=== PATIENT | male | born 1935 | race Caucasian/White ===

== ENCOUNTER 2019-02-01 17:56 | Observation (INO) | payer MEDICARE ==
[~2019-02-01] VITALS: Ht 185.4 cm; Wt 76.2 kg
[~2019-02-01 17:56] MED LIST: AZIT250 PO; CEPH250A; CEPH500; METF500 PO; METF850; ROSU10TA
[2019-02-01 18:21] LABS: BASOPHILS ABSOLUTE AUTO 0.03 K/mm3 (0.00-0.23); BASOPHILS PERCENT AUTO 0 % (0-2); EOSINOPHILS ABSOLUTE AUTO 0.07 K/mm3 (0.00-0.68); EOSINOPHILS PERCENT AUTO 1 % (0-6); Hematocrit 40.1 % (37.0-53.0); Hemoglobin 13.1 g/dL (13.5-17.5); IMMATURE GRAN ABSOLUTE AUTO 0.03 K/mm3 (0.00-0.10); IMMATURE GRAN PERCENT AUTO 0 % (0-1); LYMPHOCYTES ABSOLUTE AUTO 1.49 K/mm3 (0.84-5.20); LYMPHOCYTES PERCENT AUTO 20 % (21-46); MONOCYTES ABSOLUTE AUTO 0.57 K/mm3 (0.16-1.47); MONOCYTES PERCENT AUTO 8 % (4-13); Mean Corpuscular HGB 30.2 pg (26.0-34.0); Mean Corpuscular HGB Conc 32.7 g/dL (31.5-36.5); Mean Corpuscular Volume 92 fL (80-100); Mean Platelet Volume 11.4 fL (9.1-12.4); NEUTROPHILS ABSOLUTE AUTO 5.28 K/mm3 (1.96-9.15); NEUTROPHILS PERCENT AUTO 71 % (41-73); Platelet Count 175 K/mm3 (150-400); RDW Coefficient Variation 13.2 % (11.7-14.2); RDW Standard Deviation 44.8 fL (35.1-46.3); Red Blood Cell Count 4.34 M/mm3 (4.30-5.90); White Blood Cell Count 7.47 K/mm3 (4.00-11.30)
[2019-02-01] MEDS ORDERED: DICLOFENAC SOD100 GM TOP (18:29)
[2019-02-01] MEDS ORDERED: METF500 PO (18:29)
[2019-02-01] MEDS ORDERED: Capsaicin60 GM TOP (18:30)
[2019-02-01] MEDS ORDERED: TRAM50 PO (18:30)
[2019-02-01] MEDS ORDERED: ACET500 PO (18:30)
[2019-02-01] MEDS ORDERED: DOCU100 PO (18:31)
[2019-02-01] MEDS ORDERED: Fish Oil 1,0001 EAC3 PO (18:31)
[2019-02-01 18:43] LABS: Alanine Aminotransfer (ALT/SGP 25 U/L (12-78); Albumin, Blood 3.7 g/dL (3.4-5.0); Albumin/Globulin Ratio 1.2 (0.8-1.8); Alk Phos 54 U/L (50-136); Anion Gap 4 mmol/L (6-16); Aspartate Aminotrans (AST/SGOT 19 U/L (12-37); Bilirubin, Total 0.2 mg/dL (0.1-1.0); Blood Urea Nitrogen 18 mg/dL (8-24); CO2, Blood 28 mmol/L (21-32); Calcium, Blood 8.8 mg/dL (8.5-10.1); Chloride, Blood 109 mmol/L (98-108); Creatinine, Blood 1.06 mg/dL (0.60-1.20); Globulin, Blood 3.2 g/dL (2.2-4.0); Glomerular Filtration Rate >60 (60-); Glucose, Blood 139 mg/dL (70-99); Potassium, Blood 4.1 mmol/L (3.5-5.5); Sodium, Blood 141 mmol/L (136-145); Total Protein, Blood 6.9 g/dL (6.4-8.2); Troponin I <0.015 ng/mL (0.000-0.040)
[2019-02-01 21:11] LABS: CHOL/HDL RATIO 3.9; Cholesterol 176 mg/dL (50-200); HDL Cholesterol 45 mg/dL (>39); LDL/HDL RATIO 1.9; Low Density Lipoprotein Chol 87 mg/dL (0-110); Triglycerides 222 mg/dL (30-160); Very Low Density Lipoprot Chol 44 mg/dL (6-32)
[2019-02-01] MEDS ORDERED: HYLANDS LEG CRAMP PO (21:39)
[2019-02-02 04:47] LABS: Hemoglobin 12.3 g/dL (13.5-17.5); Mean Corpuscular HGB 29.5 pg (26.0-34.0); Mean Corpuscular HGB Conc 32.4 g/dL (31.5-36.5); Mean Corpuscular Volume 91 fL (80-100); Mean Platelet Volume 11.6 fL (9.1-12.4); Platelet Count 156 K/mm3 (150-400); RDW Coefficient Variation 13.3 % (11.7-14.2); RDW Standard Deviation 44.4 fL (35.1-46.3); Red Blood Cell Count 4.17 M/mm3 (4.30-5.90); White Blood Cell Count 6.35 K/mm3 (4.00-11.30)
[2019-02-02 05:12] LABS: Alanine Aminotransfer (ALT/SGP 20 U/L (12-78); Albumin, Blood 3.3 g/dL (3.4-5.0); Albumin/Globulin Ratio 1.2 (0.8-1.8); Alk Phos 47 U/L (50-136); Anion Gap 5 mmol/L (6-16); Aspartate Aminotrans (AST/SGOT 19 U/L (12-37); Bilirubin, Total 0.3 mg/dL (0.1-1.0); Blood Urea Nitrogen 17 mg/dL (8-24); Bun/Creatinine Ratio 17.7 (12.0-20.0); CO2, Blood 27 mmol/L (21-32); Calcium, Blood 8.4 mg/dL (8.5-10.1); Chloride, Blood 112 mmol/L (98-108); Creatinine, Blood 0.96 mg/dL (0.60-1.20); Globulin, Blood 2.7 g/dL (2.2-4.0); Glomerular Filtration Rate >60 (60-); Glucose, Blood 95 mg/dL (70-99); Sodium, Blood 144 mmol/L (136-145)
--- NOTE | 2019-02-02 05:45 | NUR ---
SHIFT SUMMARY PT ADMITTED FOR LEFT SIDED NUMBNESS, HAS RESOLVED UPON ARRIVAL TO UNIT. PT ALERT AND ORIENTED, UP INDEPENDENTLY IN ROOM. NO SKIN ISSUES NOTED. TELEMETRY INTACT AND SHOWS A PACED RHYTHM AT 67. PT OFFERS NO C/O'S, WILL CONTINUE TO MONITOR.
--- NOTE | 2019-02-02 09:31 | NUR ---
ECHOCARDIOGRAM COMPLETE
[2019-02-02] MEDS ORDERED: ASPI81CH PO (14:22)
--- NOTE | 2019-02-02 14:59 | NUR ---
PT DISCHARGED AT 1435. ALL PAPERS REVIEWED AND EDUCATIONAL MATERIAL SENT. AOX4 VERY PLEASANT WITH CARE TODAY. INDEPENDENT IN ROOM NO DISTRESS NOTED. PT REQUESTED [facility] TO BE CALLED TO GET HIM TO [place] TO GET HIS CAR.
== END 2019-02-02 14:42 | disposition home or self-care (01) ==
LOC: ER 17:56 → MEDS 17:57
PROVIDERS: Emergency Medicine; ADMIT Internal Medicine
DX: R20.0 Anesthesia of skin (principal); R29.898 Other symptoms and signs involving the musculoskeletal system; R07.89 Other chest pain; K59.00 Constipation, unspecified; I65.21 Occlusion and stenosis of right carotid artery; E11.9 Type 2 diabetes mellitus without complications; E78.00 Pure hypercholesterolemia, unspecified; Z85.038 Personal history of other malignant neoplasm of large intestine; Z79.899 Other long term (current) drug therapy; Z79.84 Long term (current) use of oral hypoglycemic drugs; Z88.8 Allergy status to other drugs, medicaments and biological substances
CPT/HCPCS: 36415; 70450; 80053; 80061; 84484; 85025; 85027; 93005; 93010; 93306; 93880; 96372; 99285-25; G0378; J1650; J7030

== ENCOUNTER 2019-03-25 04:22 | Emergency (ER) | payer MEDICARE ==
[~2019-03-25] VITALS: Ht 182.9 cm; Wt 75.8 kg
[~2019-03-25 04:22] MED LIST changes: +ACET500 PO; +ASPI81CH PO; +Capsaicin60 GM TOP; +DICLOFENAC SOD100 GM TOP; +DOCU100 PO; +Fish Oil 1,0001 EAC3 PO; +HYLANDS LEG CRAMP PO; +TRAM50 PO
[2019-03-25 04:58] LABS: BASOPHILS ABSOLUTE AUTO 0.03 K/mm3 (0.00-0.23); BASOPHILS PERCENT AUTO 0 % (0-2); EOSINOPHILS ABSOLUTE AUTO 0.11 K/mm3 (0.00-0.68); EOSINOPHILS PERCENT AUTO 1 % (0-6); Hematocrit 42.7 % (37.0-53.0); Hemoglobin 13.8 g/dL (13.5-17.5); IMMATURE GRAN ABSOLUTE AUTO 0.07 K/mm3 (0.00-0.10); IMMATURE GRAN PERCENT AUTO 0 % (0-1); LYMPHOCYTES ABSOLUTE AUTO 0.89 K/mm3 (0.84-5.20); LYMPHOCYTES PERCENT AUTO 5 % (21-46); MONOCYTES PERCENT AUTO 8 % (4-13); Mean Corpuscular HGB 30.6 pg (26.0-34.0); Mean Corpuscular HGB Conc 32.3 g/dL (31.5-36.5); Mean Corpuscular Volume 95 fL (80-100); Mean Platelet Volume 11.2 fL (9.1-12.4); NEUTROPHILS ABSOLUTE AUTO 14.85 K/mm3 (1.96-9.15); NEUTROPHILS PERCENT AUTO 86 % (41-73); Platelet Count 191 K/mm3 (150-400); RDW Coefficient Variation 13.3 % (11.7-14.2); RDW Standard Deviation 46.8 fL (35.1-46.3); Red Blood Cell Count 4.51 M/mm3 (4.30-5.90); White Blood Cell Count 17.35 K/mm3 (4.00-11.30)
[2019-03-25 05:38] LABS: Albumin, Blood 3.9 g/dL (3.4-5.0); Albumin/Globulin Ratio 1.1 (0.8-1.8); Bilirubin, Total 0.3 mg/dL (0.1-1.0); Calcium, Blood 9.2 mg/dL (8.5-10.1); Creatinine, Blood 1.24 mg/dL (0.60-1.20); Globulin, Blood 3.5 g/dL (2.2-4.0); Magnesium, Blood 2.2 mg/dL (1.6-2.4); Potassium, Blood 4.3 mmol/L (3.5-5.5); Total Protein, Blood 7.4 g/dL (6.4-8.2)
[2019-03-25 07:58] LABS: Source, Urine Voided
[2019-03-25 08:03] LABS: Bilirubin, Urine Neg (Neg); Blood, Urine Neg (Neg); Glucose Qualitative, Urine Neg (Neg); Ketones, Urine Neg (Neg); Leukocyte Esterase, Urine Neg (Neg); Nitrite, Urine Neg (Neg); Protein, Urine 1+ (Neg); Urobilinogen, Urine NORM (Normal)
[2019-03-25 08:20] LABS: Appearance, Urine Clear (Clear); Color, Urine Yellow (P-Yellow)
== END 2019-03-25 09:19 | disposition home or self-care (01) ==
LOC: ER 04:22
PROVIDERS: Emergency Medicine
DX: R19.7 Diarrhea, unspecified (principal); R10.9 Unspecified abdominal pain; Z88.8 Allergy status to other drugs, medicaments and biological substances; Z79.899 Other long term (current) drug therapy; Z79.84 Long term (current) use of oral hypoglycemic drugs; Z79.82 Long term (current) use of aspirin; E11.9 Type 2 diabetes mellitus without complications; Z86.73 Personal history of transient ischemic attack (TIA), and cerebral infarction without residual deficits; Z87.891 Personal history of nicotine dependence
CPT/HCPCS: 36415; 71045; 74177; 80053; 83605; 83735; 85025; 99284-25; A9270; J7030; Q9967

== ENCOUNTER 2019-09-18 08:11 | Day surgery (SDC) | payer OTHER ==
[~2019-09-18] VITALS: Ht 182.9 cm; Wt 74.1 kg
[~2019-09-18 08:11] MED LIST changes: +Augmentin 875-1 EACH PO; +BISA5EC PO; +PROBIOTIC1 EAC1 PO
== END 2019-09-18 11:12 | disposition home or self-care (01) ==
LOC: ORSCSDS 08:11
PROVIDERS: Internal Medicine Gastroenterology
PROC: 0DJD8ZZ Inspection of Lower Intestinal Tract, Via Natural or Artificial Opening Endoscopic (ICD-10-PCS; principal; 2019-09-18 09:30)
PROC: 0DB68ZX Excision of Stomach, Via Natural or Artificial Opening Endoscopic, Diagnostic (ICD-10-PCS; principal; 2019-09-18 09:30)
PROC: 0DB58ZX Excision of Esophagus, Via Natural or Artificial Opening Endoscopic, Diagnostic (ICD-10-PCS; principal; 2019-09-18 09:30)
PROC: 0D758ZZ Dilation of Esophagus, Via Natural or Artificial Opening Endoscopic (ICD-10-PCS; principal; 2019-09-18 09:30)
DX: R13.12 Dysphagia, oropharyngeal phase (principal); K21.9 Gastro-esophageal reflux disease without esophagitis; K29.50 Unspecified chronic gastritis without bleeding; K31.9 Disease of stomach and duodenum, unspecified; K57.30 Diverticulosis of large intestine without perforation or abscess without bleeding; K59.00 Constipation, unspecified; Z80.0 Family history of malignant neoplasm of digestive organs; Z86.010 Personal history of colon polyps; Z87.891 Personal history of nicotine dependence; E11.9 Type 2 diabetes mellitus without complications; Z95.0 Presence of cardiac pacemaker; Z79.82 Long term (current) use of aspirin; Z79.84 Long term (current) use of oral hypoglycemic drugs; Z79.899 Other long term (current) drug therapy
CPT/HCPCS: 74270; 82947; 88305; 88341; 88342; J2704; J7120

== ENCOUNTER 2019-10-12 09:31 | Emergency (ER) | payer OTHER ==
[~2019-10-12] VITALS: Ht 182.9 cm; Wt 73.0 kg
[2019-10-12] MEDS ORDERED: MELA3 PO (09:45)
[2019-10-12] MEDS ORDERED: AMOX875 PO (09:46)
[2019-10-12] MEDS ORDERED: VITAMINS (09:48)
[2019-10-12] MEDS ORDERED: Norco 5-325 Ta1 EACH PO (10:52)
== END 2019-10-12 11:00 | disposition home or self-care (01) ==
LOC: ER 09:31
DX: M79.621 Pain in right upper arm (principal); E11.9 Type 2 diabetes mellitus without complications; Z88.5 Allergy status to narcotic agent; Z88.8 Allergy status to other drugs, medicaments and biological substances; Z79.899 Other long term (current) drug therapy; Z79.84 Long term (current) use of oral hypoglycemic drugs; Z98.2 Presence of cerebrospinal fluid drainage device; Z87.891 Personal history of nicotine dependence
CPT/HCPCS: 36415; 84484; 93005; 93010; 99283-25

== ENCOUNTER 2020-06-17 20:44 | Emergency (ER) | payer OTHER, MEDICARE ==
[~2020-06-17] VITALS: Ht 182.9 cm; Wt 73.0 kg
[~2020-06-17 20:44] MED LIST changes: +AMOX875 PO; +HYDR1TAB94 PO; +MELA3 PO; +METPRE4DP PO; +Norco 5-325 Ta1 EACH PO; +VITAMINS
== END 2020-06-17 23:38 | disposition home or self-care (01) ==
LOC: ER 20:44
DX: S61.431A Puncture wound without foreign body of right hand, initial encounter (principal); E11.9 Type 2 diabetes mellitus without complications; E78.00 Pure hypercholesterolemia, unspecified; Z95.0 Presence of cardiac pacemaker; Z87.891 Personal history of nicotine dependence; Z88.5 Allergy status to narcotic agent; Z88.8 Allergy status to other drugs, medicaments and biological substances; Z79.84 Long term (current) use of oral hypoglycemic drugs; Z79.82 Long term (current) use of aspirin; Z86.73 Personal history of transient ischemic attack (TIA), and cerebral infarction without residual deficits; W45.8XXA Other foreign body or object entering through skin, initial encounter
CPT/HCPCS: 99283-25

== ENCOUNTER → 2020-09-29 | Outpatient (CLI) | payer OTHER, MEDICARE | LOC: LAB SHORT 08:05 → LAB 08:05 | DX: L57.0 Actinic keratosis (principal) | CPT/HCPCS: 88305 ==

== ENCOUNTER 2022-04-17 12:23 | Emergency (ER) | payer OTHER ==
[~2022-04-17] VITALS: Ht 182.9 cm; Wt 73.0 kg
[2022-04-17] MEDS ORDERED: ONDA4ODT MM (12:40)
== END 2022-04-17 14:20 | disposition home or self-care (01) ==
LOC: ER 12:23
DX: U07.1 COVID-19 (principal); E11.9 Type 2 diabetes mellitus without complications; Z86.73 Personal history of transient ischemic attack (TIA), and cerebral infarction without residual deficits; Z87.891 Personal history of nicotine dependence; Z79.899 Other long term (current) drug therapy; Z79.82 Long term (current) use of aspirin; Z88.8 Allergy status to other drugs, medicaments and biological substances
CPT/HCPCS: 36415; J2405

== ENCOUNTER 2022-05-03 08:21 | Inpatient (IN) | payer OTHER ==
[~2022-05-03] VITALS: Ht 182.9 cm; Wt 73.6 kg
[~2022-05-03 08:21] MED LIST changes: +ONDA4ODT MM
[2022-05-03 09:15] LABS: Hematocrit 33.1 % (37.0-53.0); Hemoglobin 10.9 g/dL (13.5-17.5); Mean Corpuscular HGB 29.5 pg (26.0-34.0); Mean Corpuscular HGB Conc 32.9 g/dL (31.5-36.5); Mean Corpuscular Volume 90 fL (80-100); Mean Platelet Volume 11.5 fL (9.1-12.4); Platelet Count 259 K/mm3 (150-400); Red Blood Cell Count 3.69 M/mm3 (4.30-5.90)
[2022-05-03 09:21] LABS: Albumin, Blood 2.7 g/dL (3.4-5.0); Albumin/Globulin Ratio 0.8 (0.8-1.8); Bilirubin, Total 0.3 mg/dL (0.1-1.0); Bun/Creatinine Ratio 27.8 (12.0-20.0); Calcium, Blood 7.7 mg/dL (8.5-10.1); Creatinine, Blood 1.15 mg/dL (0.60-1.20); Globulin, Blood 3.2 g/dL (2.2-4.0); Potassium, Blood 4.4 mmol/L (3.5-5.5); Total Protein, Blood 5.9 g/dL (6.4-8.2)
[2022-05-03 09:40] LABS: BAND PERCENT MAN 7 % (0-8); BASOPHILS PERCENT MAN 0 % (0-2); EOSINOPHILS ABSOLUTE MAN 0.29 K/mm3 (0.00-0.68); EOSINOPHILS PERCENT MAN 1 % (0-6); LYMPHOCYTES ABSOLUTE MAN 0.29 K/mm3 (0.84-5.20); LYMPHOCYTES PERCENT MAN 1 % (21-46); MONOCYTES ABSOLUTE MAN 0.29 K/mm3 (0.16-1.47); MONOCYTES PERCENT MAN 1 % (4-13); NEUTROPHILS ABSOLUTE MAN 28.61 K/mm3 (1.96-9.15); SEG NEUTROPHILS PERCENT MAN 90 % (41-73); TOTAL CELLS COUNTED 100
[2022-05-03 10:59] LABS: Source, Urine Clean Catch
[2022-05-03 11:13] LABS: Appearance, Urine Hazy (Clear); Blood, Urine 5+ (Neg); Color, Urine Yellow (P-Yellow); Glucose Qualitative, Urine Neg (Neg); Ketones, Urine Neg (Neg); Leukocyte Esterase, Urine 2+ (Neg); Nitrite, Urine Neg (Neg); Protein, Urine 2+ (Neg); Urobilinogen, Urine 1+ (Normal)
[2022-05-03 11:16] LABS: Bilirubin, Urine 1+ (Neg)
[2022-05-03 11:32] LABS: Bacteria Many /hpf; Mucus Light (0-Heavy); Squamous Epithelial Cells Rare /hpf (Few); Transitional Epithelial Cells Rare /hpf (0-Rare)
--- NOTE | 2022-05-03 14:20 | NUR ---
Received report from WOOL SHEARING SUPERVISOR. Patient transferred to PCU 13 and was self amblatory to bed. He is alert and oriented and is able to communicate his needs. He is on RA and sats >90%. He has urinal at bedside and has call light within reach. He has 20ga IV in LAC and iss infusing NS at 100 ml/hr and Rocephin. His has gone home and will be back later. His took cloths home and wanted to wash them.
--- NOTE | 2022-05-03 16:48 | NUR ---
Patient used urinal and call light appropriately, calls when needing help. He hasd NS at 100 ml/hr. CBG AC/HS. systolic >100 and MAP >65. No other significant changes with patient.
--- NOTE | 2022-05-03 18:35 | NUR ---
Patient doing well. He is independent in bed, but know to call because lines and tubes. 20 ga IV in LAC infusing NS at 100 ml/hr. He has SCD's in place tobilateral LE's. He tolerated 100% of ADA dinner and 1/2 cup coffee. He remains 100% paced 80's He had 300 mls yellow urine per urinal.He remains alert and oriented and able to communicate his needs well.
[2022-05-04 04:35] LABS: BASOPHILS ABSOLUTE AUTO 0.02 K/mm3 (0.00-0.23); BASOPHILS PERCENT AUTO 0 % (0-2); EOSINOPHILS ABSOLUTE AUTO 0.15 K/mm3 (0.00-0.68); EOSINOPHILS PERCENT AUTO 1 % (0-6); Hematocrit 32.7 % (37.0-53.0); Hemoglobin 10.4 g/dL (13.5-17.5); IMMATURE GRAN ABSOLUTE AUTO 0.03 K/mm3 (0.00-0.10); IMMATURE GRAN PERCENT AUTO 0 % (0-1); LYMPHOCYTES ABSOLUTE AUTO 1.32 K/mm3 (0.84-5.20); LYMPHOCYTES PERCENT AUTO 12 % (21-46); MONOCYTES ABSOLUTE AUTO 1.05 K/mm3 (0.16-1.47); MONOCYTES PERCENT AUTO 9 % (4-13); Mean Corpuscular HGB 28.9 pg (26.0-34.0); Mean Corpuscular HGB Conc 31.8 g/dL (31.5-36.5); Mean Corpuscular Volume 91 fL (80-100); Mean Platelet Volume 11.1 fL (9.1-12.4); NEUTROPHILS ABSOLUTE AUTO 8.63 K/mm3 (1.96-9.15); NEUTROPHILS PERCENT AUTO 77 % (41-73); Platelet Count 237 K/mm3 (150-400); RDW Coefficient Variation 13.3 % (11.7-14.2); RDW Standard Deviation 43.9 fL (35.1-46.3)
[2022-05-04 05:02] LABS: Albumin, Blood 2.6 g/dL (3.4-5.0); Albumin/Globulin Ratio 0.9 (0.8-1.8); Bilirubin, Total 0.2 mg/dL (0.1-1.0); Bun/Creatinine Ratio 25.9 (12.0-20.0); Calcium, Blood 7.8 mg/dL (8.5-10.1); Creatinine, Blood 0.97 mg/dL (0.60-1.20); Magnesium, Blood 2.2 mg/dL (1.6-2.4); Potassium, Blood 4.4 mmol/L (3.5-5.5); Total Protein, Blood 5.6 g/dL (6.4-8.2)
--- NOTE | 2022-05-04 08:00 | NUR ---
Received report from NOC RN. Patient sitting up in bed and awake and very energetic.He is on RA and sats >95%. He is alert and oriented and is able to communicate his needs well. He has 20ga IV in LAC and is infusing NS at 100ml/hr. He has urinal at bedside and uses appropriately. He is sitting up in bed eating breakfast independently. MAEW and is independent in bed with positioning, and is a SBA with ambulation.
--- NOTE | 2022-05-04 10:08 | NUR ---
Patient tolerated breakfast and meds. Dr and interns by to assess patient, stopped fluids. patient remains on RA and sats >95%. Independent in bed and positioning. No other new orders.
--- NOTE | 2022-05-04 13:13 | NUR ---
Patient has no significant changes. awake sitting up in bed. by and had to leave to run errands. He tolerated 100% of lunch. He continues to be independent in bed with positioning and calls appropriately. Urinal at bedside.
--- NOTE | 2022-05-04 17:05 | NUR ---
Patient indepenent in room, and he calls appropriately when needing something. He is on RA and sats >95%. He has 20ga IV to CURLY and is flushed and SL'd. He has urinal at bedside and use appropriately. SUSHMA. Plan to go home 05/05. Denies any pain or SOB.
--- NOTE | 2022-05-04 17:19 | NUR ---
Patient has been sleeping. She has had very poor appetite today and she states she feels weaker. I had another conversation about nutrition and she still does not want to eat. She has a failure to thrive attitude and she does not to really asist with getting up unless needing to urinate and t hemn she stands on her own with SBA. She can CORLEY in bed and reposition self when motivated. VSS. PowerGlide to MARGRET infusing NS at 100 ml/hr. She is getting setup for dinner and told her she needs to eat.
[2022-05-05 04:02] LABS: BASOPHILS ABSOLUTE AUTO 0.02 K/mm3 (0.00-0.23); BASOPHILS PERCENT AUTO 0 % (0-2); EOSINOPHILS ABSOLUTE AUTO 0.17 K/mm3 (0.00-0.68); EOSINOPHILS PERCENT AUTO 2 % (0-6); Hematocrit 33.5 % (37.0-53.0); IMMATURE GRAN ABSOLUTE AUTO 0.03 K/mm3 (0.00-0.10); IMMATURE GRAN PERCENT AUTO 0 % (0-1); LYMPHOCYTES ABSOLUTE AUTO 1.43 K/mm3 (0.84-5.20); LYMPHOCYTES PERCENT AUTO 15 % (21-46); MONOCYTES ABSOLUTE AUTO 1.04 K/mm3 (0.16-1.47); MONOCYTES PERCENT AUTO 11 % (4-13); Mean Corpuscular HGB 29.5 pg (26.0-34.0); Mean Corpuscular HGB Conc 32.8 g/dL (31.5-36.5); Mean Corpuscular Volume 90 fL (80-100); Mean Platelet Volume 11.1 fL (9.1-12.4); NEUTROPHILS ABSOLUTE AUTO 6.68 K/mm3 (1.96-9.15); NEUTROPHILS PERCENT AUTO 71 % (41-73); Platelet Count 233 K/mm3 (150-400); RDW Coefficient Variation 13.2 % (11.7-14.2); RDW Standard Deviation 43.5 fL (35.1-46.3); Red Blood Cell Count 3.73 M/mm3 (4.30-5.90); White Blood Cell Count 9.37 K/mm3 (4.00-11.30)
[2022-05-05 04:25] LABS: Bun/Creatinine Ratio 19.7 (12.0-20.0); Calcium, Blood 8.4 mg/dL (8.5-10.1); Creatinine, Blood 0.87 mg/dL (0.60-1.20)
--- NOTE | 2022-05-05 05:27 | NUR ---
SHIFT SUMMARY PT ALERT AND ORIENTED X4. HR SR 60-70'S. BP STABLE. ON RA SATS OVER 94%. AFEBRILE. NO C/O OF PAIN OR DISCOMFORT. INDEPENDENT FOR ADL'S. RESTING COMFORTABLY IN BED. WILL CONTINUE TO MONITOR UNTIL REPORT GIVEN TO DAYSHIFT RN
--- NOTE | 2022-05-05 10:46 | NUR ---
DISCHARGE UPDATE DISCHARGE PACKET GONE OVER WITH PT AND PT AT 1012. PT DISCHARGED AT 1024 VIA WHEELCHAIR AND ON RA. PT ABLE TO TRANSFER SELF TO AND FROM WHEELCHAIR BY HIMSELF USING HIS CANE. DISCHARGE PACKET AND PERSONAL BELONGINGS WITH PT DURING DISCHARGE.
== END 2022-05-05 10:25 | disposition home or self-care (01) | DRG 871 ==
LOC: ER 08:21 → PCU 13:01
PROVIDERS: Family Medicine; Nurse Practitioner Acute Care; Student in an Organized Health Care Education/Training Program; ADMIT Internal Medicine
DX: A41.9 Sepsis, unspecified organism (principal); G92.8 Other toxic encephalopathy; N39.0 Urinary tract infection, site not specified; A08.39 Other viral enteritis; E11.9 Type 2 diabetes mellitus without complications; U09.9 Post COVID-19 condition, unspecified; I44.1 Atrioventricular block, second degree; Z86.73 Personal history of transient ischemic attack (TIA), and cerebral infarction without residual deficits; Z95.0 Presence of cardiac pacemaker; Z85.038 Personal history of other malignant neoplasm of large intestine; Z88.8 Allergy status to other drugs, medicaments and biological substances; Z88.5 Allergy status to narcotic agent; Z79.899 Other long term (current) drug therapy; Z79.891 Long term (current) use of opiate analgesic; Z79.84 Long term (current) use of oral hypoglycemic drugs; Z98.890 Other specified postprocedural states; Z87.891 Personal history of nicotine dependence; Z86.79 Personal history of other diseases of the circulatory system; Z79.82 Long term (current) use of aspirin; Z80.0 Family history of malignant neoplasm of digestive organs; R05.8 Other specified cough
CPT/HCPCS: 36415; 70450; 71045; 74177; 80048; 80053; 81001; 82947; 83605; 83735; 84145; 84484; 85025; 87040; 93005; 93010; 96360-59; 96361; 99285-25; A9270; J0696; J1650; J7030; Q9967

== ENCOUNTER 2023-02-06 13:16 | Emergency (ER) | payer OTHER ==
[~2023-02-06] VITALS: Ht 182.9 cm; Wt 71.2 kg
[2023-02-06 13:54] LABS: BASOPHILS ABSOLUTE AUTO 0.03 K/mm3 (0.00-0.23); BASOPHILS PERCENT AUTO 0 % (0-2); EOSINOPHILS ABSOLUTE AUTO 0.11 K/mm3 (0.00-0.68); EOSINOPHILS PERCENT AUTO 1 % (0-6); Hematocrit 39.5 % (37.0-53.0); IMMATURE GRAN ABSOLUTE AUTO 0.02 K/mm3 (0.00-0.10); IMMATURE GRAN PERCENT AUTO 0 % (0-1); LYMPHOCYTES ABSOLUTE AUTO 1.59 K/mm3 (0.84-5.20); LYMPHOCYTES PERCENT AUTO 20 % (21-46); MONOCYTES ABSOLUTE AUTO 0.69 K/mm3 (0.16-1.47); MONOCYTES PERCENT AUTO 9 % (4-13); Mean Corpuscular HGB 30.4 pg (26.0-34.0); Mean Corpuscular HGB Conc 32.9 g/dL (31.5-36.5); Mean Corpuscular Volume 93 fL (80-100); Mean Platelet Volume 11.6 fL (9.1-12.4); NEUTROPHILS ABSOLUTE AUTO 5.39 K/mm3 (1.96-9.15); NEUTROPHILS PERCENT AUTO 69 % (41-73); Platelet Count 176 K/mm3 (150-400); RDW Coefficient Variation 13.2 % (11.7-14.2); RDW Standard Deviation 44.6 fL (35.1-46.3); Red Blood Cell Count 4.27 M/mm3 (4.30-5.90); White Blood Cell Count 7.83 K/mm3 (4.00-11.30)
[2023-02-06] MEDS ORDERED: Phospha 250 Ne250 MG PO (13:58)
[2023-02-06] MEDS ORDERED: LIDO700A20 TOP (13:58)
[2023-02-06] MEDS ORDERED: DICLOFENAC SOD100 GM TP (13:58)
[2023-02-06 14:16] LABS: Albumin, Blood 3.5 g/dL (3.4-5.0); Albumin/Globulin Ratio 1.1 (0.8-1.8); Bilirubin, Total 0.2 mg/dL (0.1-1.0); Bun/Creatinine Ratio 24.3 (12.0-20.0); Calcium, Blood 9.1 mg/dL (8.5-10.1); Creatinine, Blood 0.9 mg/dL (0.60-1.20); Globulin, Blood 3.3 g/dL (2.2-4.0); Potassium, Blood 4.2 mmol/L (3.5-5.5); Total Protein, Blood 6.8 g/dL (6.4-8.2)
[2023-02-06 18:30] VITALS: BP 138/67
== END 2023-02-06 18:49 | disposition home or self-care (01) ==
LOC: ER 13:16
PROVIDERS: Student in an Organized Health Care Education/Training Program
DX: R07.81 Pleurodynia (principal); Z88.5 Allergy status to narcotic agent; Z88.8 Allergy status to other drugs, medicaments and biological substances; Z79.899 Other long term (current) drug therapy; Z79.84 Long term (current) use of oral hypoglycemic drugs; E11.9 Type 2 diabetes mellitus without complications; E78.00 Pure hypercholesterolemia, unspecified
CPT/HCPCS: 71046; 80053; 84484; 85025; 85379; 93005; 93010; 99285-25

== ENCOUNTER → 2023-04-12 | Outpatient (CLI) | payer MEDICARE | LOC: PLD 07:44 | DX: C44.519 Basal cell carcinoma of skin of other part of trunk (principal) ==

== ENCOUNTER 2023-06-15 06:09 | Day surgery (SDC) | payer OTHER ==
[~2023-06-15] VITALS: Ht 182.9 cm; Wt 70.0 kg
[~2023-06-15 06:09] MED LIST changes: +B COMPLEX VITAMIN PO; +CALCIUM CARBON650 MG PO; +CHROMIUM PIC1000 MC1 PO; +CINNAMON EXTRA500 MG PO; +COLLAGEN 15001 EACH PO; +DICLOFENAC SOD100 GM TP; +FISH OIL 1,0001 EA10 PO; +LIDO700A20 TOP; +MAGNESIUM OXID500 MG PO; +MELATONIN5 M1 PO; +Phospha 250 Ne250 MG PO; +Saw Palmetto160 MG; +THERA-D2000 UNIT PO
[2023-06-15 09:24] VITALS: BP 139/64
[2023-06-15 09:30] VITALS: BP 146/76
--- NOTE | 2023-06-15 09:33 | NUR ---
PT ARRIVES FROM LAB ALERT AND ORIENTED, UP IN RECLINER. PT. R IJ SITE WNL, NO SWELLING OR OOZING. LEFT CHEST WALL CHANGE OUT SITE WNL, BANDAGE IN PLACE, CLEAN AND DRY, NO SWELLING OR OOZING. PT. VSS. PT PROVIDED WITH BREAKFAST TRAY AND COFFEE, PT AT BEDSIDE.
[2023-06-15 09:45] VITALS: BP 149/71
[2023-06-15 10:00] VITALS: BP 145/70
[2023-06-15 10:15] VITALS: BP 118/47
--- NOTE | 2023-06-15 10:30 | NUR ---
pt to xray at this time. sites remain wnl, unchanged from previous assessment.
--- NOTE | 2023-06-15 11:47 | NUR ---
PT DISCHARGED AT THIS TIME, DR. ROWLAND IN TO CHECK ON PT PRIOR TO DEPARTURE. PT. DISCHARGE INSTRUCTIONS REVIEWED AND NO FURTHER QUESTIONS. CALL TO [facility] TO SET UP 1 MONTH APPOINTMENT, LMOM AND GAVE PATIENT VA EXTENSION IN CASE OF MISSED CALL. PT. VSS UPON DISCHARGE, SITES WNL, UNCHANGED. ICE PACK PROVIDED.
== END 2023-06-15 23:33 | disposition home or self-care (01) ==
LOC: MHTC 06:09
DX: Z45.010 Encounter for checking and testing of cardiac pacemaker pulse generator [battery] (principal); I44.2 Atrioventricular block, complete; I49.5 Sick sinus syndrome; I10 Essential (primary) hypertension; E11.8 Type 2 diabetes mellitus with unspecified complications; M79.606 Pain in leg, unspecified; Z95.810 Presence of automatic (implantable) cardiac defibrillator; Z88.5 Allergy status to narcotic agent; Z79.84 Long term (current) use of oral hypoglycemic drugs; Z79.899 Other long term (current) drug therapy
CPT/HCPCS: 33210; 33227; 33228; 71045; 99152; 99153; C1769; C1785; J0690; J1644; J2250; J3010; J7040; J7050